=== PATIENT | male | born 1965 | race Caucasian/White ===

== ENCOUNTER 2020-10-22 19:17 | Emergency (ER) | payer OTHER ==
[~2020-10-22] VITALS: Ht 165.1 cm; Wt 88.5 kg
[~2020-10-22 19:17] MED LIST: ESK300 PO; OLAN10TA PO; QUET400T PO; TRAZ-343 PO
[2020-10-22 19:25] VITALS: BP 126/79
--- NOTE | 2020-10-22 19:25 | NUR ---
to bed ambulatory
[2020-10-22 19:41] VITALS: BP 126/79
--- NOTE | 2020-10-22 20:39 | NUR ---
Dr. Delgado at bedside for MSE
[2020-10-22] MEDS ORDERED: KETOROLAC 60 MG/2 ML VIAL IM ONE (20:45)
--- NOTE | 2020-10-22 20:48 | NUR ---
JT WRAP PLACED ON PT R ANKLE. +CSM
--- NOTE | 2020-10-22 20:49 | NUR ---
PT REFUSED CRUTCHES
[2020-10-22] MEDS ORDERED: ACET-8386 PO (20:55)
[2020-10-22] MEDS ORDERED: IBUP-2213 PO (20:55)
--- NOTE | 2020-10-22 21:03 | NUR ---
d/c with VSS. d/c education given. opportunity to ask questions given and answered. rx of motrin and norco given.
== END 2020-10-22 21:04 | disposition home or self-care (01) ==
LOC: MED 19:17
DX: S93.401A Sprain of unspecified ligament of right ankle, initial encounter (principal); F20.9 Schizophrenia, unspecified; W01.0XXA Fall on same level from slipping, tripping and stumbling without subsequent striking against object, initial encounter; Y93.89 Activity, other specified; Y92.89 Other specified places as the place of occurrence of the external cause; Y99.8 Other external cause status
CPT/HCPCS: 73610; 96372; 99283; J1885

== ENCOUNTER 2023-09-29 17:34 | Emergency (ER) | payer OTHER ==
[~2023-09-29] VITALS: Ht 177.8 cm; Wt 81.6 kg
[~2023-09-29 17:34] MED LIST changes: +ACET-8905 PO; +IBUP-2213 PO
[2023-09-29 17:38] VITALS: BP 136/82; PULSE 72; RESP 19; TEMP 98.7; O2SAT 98
[2023-09-29] MEDS: LIDOCAINE MPF 1% 10 MG/ML VIAL INJ ONE (19:44)
[2023-09-29] MEDS ORDERED: BACI-418 TP (20:43)
[2023-09-29] MEDS ORDERED: AMOX-1230 PO (20:43)
[2023-09-29] MEDS: BACITRACIN OINT 500 UNITS/GM PKT TP ONE (20:50)
[2023-09-29 21:10] VITALS: BP 132/82; PULSE 77; RESP 19; TEMP 98.7; O2SAT 98
== END 2023-09-29 21:10 | disposition home or self-care (01) ==
LOC: MED 17:34
DX: S01.21XA Laceration without foreign body of nose, initial encounter (principal); Z79.1 Long term (current) use of non-steroidal anti-inflammatories (NSAID); Z79.2 Long term (current) use of antibiotics; Z79.899 Other long term (current) drug therapy; W54.0XXA Bitten by dog, initial encounter; Y93.89 Activity, other specified; Y92.89 Other specified places as the place of occurrence of the external cause; Y99.8 Other external cause status
CPT/HCPCS: 12013; 90471; 90715; 99283; J2001

== ENCOUNTER 2023-10-07 16:21 | Emergency (ER) | payer OTHER ==
[~2023-10-07] VITALS: Ht 160 cm; Wt 72.6 kg
[~2023-10-07 16:21] MED LIST changes: +AMOX-1230 PO; +BACI-418 TP
[2023-10-07 16:57] VITALS: BP 127/87; PULSE 63; RESP 18; TEMP 97.8; O2SAT 99
[2023-10-07 18:39] VITALS: BP 136/70; PULSE 78; RESP 18; O2SAT 99
== END 2023-10-07 18:39 | disposition home or self-care (01) ==
LOC: MED 16:21
DX: S01.21XD Laceration without foreign body of nose, subsequent encounter (principal); F20.9 Schizophrenia, unspecified; Z48.02 Encounter for removal of sutures; Z79.899 Other long term (current) drug therapy; X58.XXXD Exposure to other specified factors, subsequent encounter
CPT/HCPCS: 99281